=== PATIENT | male | born 1965 | race American Indian/Alaskan Native ===

== ENCOUNTER 2018-12-02 09:10 | Emergency (ER) | payer SELFPAY ==
[2018-12-02 09:24] VITALS: BP 139/86
[2018-12-02 10:18] LABS: Basophils % (Auto) 0.2 % (0.0-1.8); Eosinophils % (Auto) 0.1 % (0.0-4.3); Hematocrit 45.5 % (35.5-45.6); Hemoglobin 16.1 gm/dl (11.8-15.2); Lymphocytes # (Auto) 0.7 K/mm3 (1.2-5.4); Lymphocytes % (Auto) 8.9 % (13.4-35.0); Mean Corpuscular HGB Conc 35 % (32-34); Mean Corpuscular Volume 101 fl (84-94); Monocytes # (Auto) 0.5 K/mm3 (0.0-0.8); Monocytes % (Auto) 5.6 % (0.0-7.3); Platelet Count 264 K/mm3 (140-440); Red Cell Distribution Width 14.1 % (13.2-15.2)
[2018-12-02 10:37] LABS: Alanine Aminotransferase 14 units/L (7-56); BUN/Creatinine Ratio 9; Blood Urea Nitrogen 8 mg/dL (9-20); Calcium 9.8 mg/dL (8.4-10.2); Hemolysis Index 15
--- NOTE | 2018-12-02 11:17 | Ultrasound Report ---
LIMITED RUQ ABDOMINAL ULTRASOUND INDICATION: Epigastric pain. COMPARISON: No relevant prior imaging study available. FINDINGS: Pancreas: Visualized portions show no significant abnormality. Abdominal Aorta: Mild atherosclerosis noted. IVC: No significant abnormality. Liver: No significant abnormality. Normal hepatopedal blood flow in the main portal vein. Gallbladder: No significant abnormality. Bile ducts: No significant abnormality. Common bile duct measures 3.9 mm. Right kidney: No significant abnormality visualized.. Free fluid: None. Additional Findings: None. IMPRESSION: 1. No acute or concerning abnormality in the right quadrant sonographically. Signer Name: Rich Brito MD Signed: 12/02/2018 11:12 AM Workstation Name: [id number]
--- NOTE | 2018-12-02 11:22 | XRay Report ---
CHEST 2 VIEWS 1057 INDICATION / CLINICAL INFORMATION: Long history of smoking, currently severe shortness of breath foll owing walking. COMPARISON: None available. FINDINGS: SUPPORT DEVICES: None. HEART / MEDIASTINUM: No significant abnormality. LUNGS / PLEURA: No significant pulmonary or pleural abnormality. No pneumothorax. ADDITIONAL FINDINGS: No significant additional findings. IMPRESSION: No significant acute abnormality Signer Name: Tiago James MD Signed: 12/02/2018 11:17 AM Workstation Name: [id number]
--- NOTE | 2018-12-02 11:49 | Emergency Department Report ---
ED General Adult HPI - General Chief complaint: Dyspnea/Respdistress Stated complaint: NAUSEA/SOB Time Seen by Provider: 12/02/18 09:55 Source: patient Mode of arrival: Ambulatory Limitations: No Limitations - History of Present Illness Initial comments: Patient is a 53-year-old male withhistory of any past medical problems who states he has been having some discomfort after eating. Patient states that after eating one or 2 bites of food he becomes very full. Patient states of some mild nausea. He denies vomiting diarrhea fevers cough cold or congestion. Patient states that he feels very bloated. Patient has some exertional shortness of breath but denies chest pain. Patient states that his energy has been decreased for the last week as well. - Related Data Previous Rx's Medication Instructions Recorded Last Taken Type metFORMIN [Glucophage] 500 mg PO BID #30 tablet 12/02/18 Unknown Rx Allergies Allergy/AdvReac Type Severity Reaction Status Date / Time No Known Allergies Allergy Unverified 12/02/18 09:24 ED Review of Systems ROS: Stated complaint: NAUSEA/SOB Other details as noted in HPI Comment: All other systems reviewed and negative ED Past Medical Hx - Past Medical History Previous Medical History?: No - Surgical History Past Surgical History?: No - Social History Smoking Status: Current Every Day Smoker Substance Use Type: Alcohol - Medications Home Medications: Home Medications Medication Instructions Recorded Confirmed Last Taken Type metFORMIN [Glucophage] 500 mg PO BID #30 tablet 12/02/18 Unknown Rx ED Physical Exam - General Limitations: No Limitations General appearance: alert, in no apparent distress - Head Head exam: Present: atraumatic, normocephalic - Eye Eye exam: Present: normal appearance - ENT ENT exam: Present: mucous membranes moist - Neck Neck exam: Present: normal inspection - Respiratory Respiratory exam: Present: normal lung sounds bilaterally. Absent: respiratory distress, wheezes, rales, rhonchi - Cardiovascular Cardiovascular Exam: Present: regular rate, normal rhythm. Absent: systolic murmur, diastolic murmur, rubs, gallop - GI/Abdominal GI/Abdominal exam: Present: soft, normal bowel sounds. Absent: distended, tenderness, guarding, rebound - Rectal Rectal exam: Present: deferred - Extremities Exam Extremities exam: Present: normal inspection - Back Exam Back exam: Present: normal inspection - Neurological Exam Neurological exam: Present: alert, oriented X3 - Psychiatric Psychiatric exam: Present: normal affect, normal mood - Skin Skin exam: Present: warm, dry, intact, normal color. Absent: rash ED Course Vital Signs 12/02/18 09:18 Temperature 97.8 F Pulse Rate 89 Respiratory 16 Rate Blood Pressure 139/86 O2 Sat by Pulse 99 Oximetry ED Medical Decision Making - Lab Data Result diagrams: 12/02/18 10:06 12/02/18 10:06 Lab Results 12/02/18 12/02/18 Range/Units 10:06 10:06 WBC 8.2 (4.5-11.0) K/mm3 RBC 4.50 (3.65-5.03) M/mm3 Hgb 16.1 H (11.8-15.2) gm/dl Hct 45.5 (35.5-45.6) % MCV 101 H (84-94) fl MCH 36 H (28-32) pg MCHC 35 H (32-34) % RDW 14.1 (13.2-15.2) % Plt Count 264 (140-440) K/mm3 Lymph % (Auto) 8.9 L (13.4-35.0) % [place] % (Auto) 5.6 (0.0-7.3) % Eos % (Auto) 0.1 (0.0-4.3) % Baso % (Auto) 0.2 (0.0-1.8) % Lymph # 0.7 L (1.2-5.4) K/mm3 [place] # 0.5 (0.0-0.8) K/mm3 Eos # 0.0 (0.0-0.4) K/mm3 Baso # 0.0 (0.0-0.1) K/mm3 Seg Neutrophils % 85.2 H (40.0-70.0) % Seg Neutrophils # 7.0 (1.8-7.7) K/mm3 Sodium 140 (137-145) mmol/L Potassium 4.3 (3.6-5.0) mmol/L Chloride 97.6 L (98-107) mmol/L Carbon Dioxide 23 (22-30) mmol/L Anion Gap 24 mmol/L BUN 8 L (9-20) mg/dL Creatinine 0.9 (0.8-1.5) mg/dL Estimated GFR > 60 ml/min BUN/Creatinine Ratio 9 % Glucose 156 H (75-100) mg/dL Calcium 9.8 (8.4-10.2) mg/dL Total Bilirubin 0.30 (0.1-1.2) mg/dL AST 46 H (5-40) units/L ALT 14 (7-56) units/L Alkaline Phosphatase 84 (35-129) units/L Total Protein 8.2 (6.3-8.2) g/dL Albumin 5.0 (3.9-5) g/dL Albumin/Globulin Ratio 1.6 % Lipase 19 (13-60) units/L - Radiology Data Radiology results: report reviewed (CXR WNL) [facility] [address] [place] [address] Ultrasound Report Signed Patient: BRENDA HASSAN MR#: [id number] : 1965 Acct:[id number] Age/Sex: 53 / M ADM Date: 12/02/18 Loc: ED Attending Dr: Ordering Physician: JESUS MANUEL MITCHELL MD Date of Service: 12/02/18 Procedure(s): US abdomen limited Accession Number(s): [id number] cc: JESUS MANUEL MITCHELL MD LIMITED RUQ ABDOMINAL ULTRASOUND INDICATION: Epigastric pain. COMPARISON: No relevant prior imaging study available. FINDINGS: Pancreas: Visualized portions show no significant abnormality. Abdominal Aorta: Mild atherosclerosis noted. IVC: No significant abnormality. Liver: No significant abnormality. Normal hepatopedal blood flow in the main portal vein. Gallbladder: No significant abnormality. Bile ducts: No significant abnormality. Common bile duct measures 3.9 mm. Right kidney: No significant abnormality visualized.. Free fluid: None. Additional Findings: None. IMPRESSION: 1. No acute or concerning abnormality in the right quadrant sonographically. Signer Name: Rich Brito MD Signed: 12/02/2018 11:12 AM Workstation Name: [id number] Transcribed By: ESTHER Dictated By: Rich Brito MD Electronically Authenticated By: Rich Brito MD Signed Date/Time: 12/02/18 1112 DD/ 1111 TD/TT: - Medical Decision Making Patient's laboratory studies show that the patient does have slight elevation of his blood glucose. Patient is not eaten anything this morning. Patient likely with early diabetes. We will start the patient on metformin at this time and have him follow up with primary care as well as GI. Critical care attestation.: If time is entered above; I have spent that time in minutes in the direct care of this critically ill patient, excluding procedure time. ED Disposition Clinical Impression: Hyperglycemia, Bloating symptom Disposition: DC- TO HOME OR SELFCARE Is pt being admited?: No Does the pt Need Aspirin: No Condition: Stable Instructions: Diabetic Hyperglycemia (ED), Diet for Ulcers and Gastritis (ED) Prescriptions: metFORMIN [Glucophage] 500 mg PO BID #30 tablet Referrals: TOMÁS BLOCK MD [Primary Care Provider] - 3-5 Days [facility] [Provider Group] - 3-5 Days Time of Disposition: 11:52
== END 2018-12-02 12:04 | disposition home or self-care (01) ==
LOC: ED 09:10
DX: R14.0 Abdominal distension (gaseous) (principal); R11.0 Nausea; R73.9 Hyperglycemia, unspecified; R06.02 Shortness of breath; F17.200 Nicotine dependence, unspecified, uncomplicated
CPT/HCPCS: 36415; 71046; 76705; 80053; 83690; 85025

== ENCOUNTER 2018-12-08 08:55 | Emergency (ER) | payer SELFPAY ==
--- NOTE | 2018-12-08 09:36 | Emergency Department Report ---
HPI - General Chief Complaint: Weakness Time Seen by Provider: 12/08/18 09:26 - HPI HPI: 53-year-old -Iranian male presents to the emergency department with feeling generalized weakness and fatigue. The patient was found to have a blood sugar of 57 with a triage today and then was given some orange juice to drink. The patient was here on 12/02/18 for some similar symptoms and was found to have a blood sugar of about 157 at that time, was diagnosed with diabetes or prediabetes, and was started on metformin 500 mg twice daily. The patient says that he has filled this medication and has been taking compliantly. He did take it this morning but did not have anything to eat yet. He otherwise denies any past medical history. He does not have a primary care physician. He denies any fever, chest pain, shortness of breath, headache, vision changes, slurred speech, or any neurological deficits. ED Past Medical Hx - Past Medical History Previous Medical History?: Yes Hx Diabetes: Yes - Surgical History Past Surgical History?: No - Social History Smoking Status: Current Every Day Smoker Substance Use Type: None - Medications Home Medications: Home Medications Medication Instructions Recorded Confirmed Last Taken Type metFORMIN [Glucophage] 500 mg PO BID #30 tablet 12/02/18 Unknown Rx ED Review of Systems ROS: Stated complaint: WEAK/NAUSEA Other details as noted in HPI Comment: All other systems reviewed and negative Constitutional: weakness, other (fatigue). denies: fever Eyes: denies: eye pain, vision change ENT: denies: ear pain, throat pain Respiratory: denies: cough, shortness of breath Cardiovascular: denies: chest pain, palpitations Gastrointestinal: denies: abdominal pain, vomiting Genitourinary: denies: dysuria, discharge Musculoskeletal: denies: back pain, arthralgia Skin: denies: rash, lesions Neurological: denies: headache, weakness Physical Exam - Physical Exam Physical Exam: GENERAL: The patient is well-developed well-nourished. HENT: Normocephalic. Atraumatic. Patient has moist mucous membranes. EYES: Extraocular motions are intact. Pupils equal reactive to light bilaterally. NECK: Supple. Trachea is midline. CHEST/LUNGS: Clear to auscultation. There is no respiratory distress noted. HEART/CARDIOVASCULAR: Regular. There is no tachycardia. There is no murmur. ABDOMEN: Abdomen is soft, nontender. Patient has normal bowel sounds. There is no abdominal distention. SKIN: Skin is warm and dry. NEURO: The patient is awake, alert, and oriented. The patient is cooperative. The patient has no focal neurologic deficits. The patient has normal speech. Cranial nerves II through XII grossly intact. MUSCULOSKELETAL: There is no tenderness or deformity. There is no evidence of acute injury. ED Medical Decision Making - Lab Data Result diagrams: 12/08/18 09:32 12/08/18 09:32 - EKG Data -: EKG Interpreted by Me EKG shows normal: sinus rhythm, axis (left axis deviation), intervals, QRS complexes (Q waves to the septal leads, LVH), ST-T waves Rate: normal - EKG Data When compared to previous EKG there are: previous EKG unavailable Interpretation: other (sinus rhythm, left axis deviation, LVH, Q waves to the septal leads) - Medical Decision Making this patient initially came in with the complaint of feeling fatigued and some generalized weakness and was found to have a blood sugar of 57. He was started on metformin 500 mg twice daily about 1 week ago when he had the same symptoms at that time and was found to have a blood sugar of about 160. Patient's labs today have been unremarkable other than the initial episode of hypoglycemia. He was given some orange juice through triage and then later was given a lunch tray. His serum blood sugar came back at about 75. He never had any further episodes of hypoglycemia but his blood sugar would drop when it was rechecked and this was most likely from the extended effects of the metformin. With this complaint of fatigue and generalized weakness, an EKG was also checked but it did not show any signs of ST elevation GA or significant dysrhythmia. His negative labs also included a normal thyroid function and a negative troponin. Eventually the patient's blood sugar appeared to plateau and/or stabilize. The patient is feeling improved. Vital signs were stable throughout his ED course. Brought these reasons, the patient appears safe for discharge home at this time. He has been instructed to stop taking the metformin. He may have some borderline diabetes but it will be very important for him to follow up with a primary care physician or clinic to have a hemoglobin A1c checked and to establish care so that someone can evaluate his blood sugar and further decisions can be made regarding whether or not he needs some type of treatment. In the meantime, we discussed dietary and lifestyle changes such as decreased intake of sugar, carbohydrates and starches. He has been instructed to try and find a way to keep a blood sugar check. He will return to the emergency Department with any worsening of his symptoms or any acute distress. - Differential Diagnosis diabetic hypoglycemia, insulinoma, dysrhythmia, electrolyte abnormalities Critical Care Time: No Critical care attestation.: If time is entered above; I have spent that time in minutes in the direct care of this critically ill patient, excluding procedure time. ED Disposition Clinical Impression: Hypoglycemia Disposition: DC-01 TO HOME OR SELFCARE Is pt being admited?: No Condition: Stable Instructions: Non-diabetic Hypoglycemia (ED), Diabetic Hypoglycemia (ED) Additional Instructions: Please follow up with a primary care physician or clinic in the next few days. Stop taking the metformin until follow-up with a primary care physician or clinic. Try and stay away from foods that are high in sugar, carbohydrates and starches. Keep a blood sugar log. Return to the emergency department with any return or worsening of her symptoms, or if any acute distress. Referrals: [facility] [place] [Outside] - 2-3 Days [facility] [Outside] - 2-3 Days [facility] [Outside] - 2-3 Days [facility] [Outside] - 2-3 Days Time of Disposition: 14:42
[2018-12-08 09:50] LABS: Basophils # (Auto) 0.1 K/mm3 (0.0-0.1); Basophils % (Auto) 0.6 % (0.0-1.8); Eosinophils # (Auto) 0.1 K/mm3 (0.0-0.4); Eosinophils % (Auto) 0.7 % (0.0-4.3); Hematocrit 50.7 % (35.5-45.6); Hemoglobin 17.7 gm/dl (11.8-15.2); Lymphocytes # (Auto) 1.8 K/mm3 (1.2-5.4); Lymphocytes % (Auto) 17.3 % (13.4-35.0); Mean Corpuscular HGB Conc 35 % (32-34); Mean Corpuscular Volume 102 fl (84-94); Monocytes # (Auto) 0.6 K/mm3 (0.0-0.8); Monocytes % (Auto) 5.4 % (0.0-7.3); Platelet Count 237 K/mm3 (140-440); Red Blood Count 4.98 M/mm3 (3.65-5.03); Red Cell Distribution Width 13.9 % (13.2-15.2)
[2018-12-08 10:21] LABS: Alanine Aminotransferase 16 units/L (7-56); Albumin 5.4 g/dL (3.9-5); BUN/Creatinine Ratio 8; Blood Urea Nitrogen 7 mg/dL (9-20); Calcium 10.2 mg/dL (8.4-10.2); Hemolysis Index 19
[2018-12-08 13:57] VITALS: BP 143/95
== END 2018-12-08 14:48 | disposition home or self-care (01) ==
LOC: ED 08:55
DX: E11.649 Type 2 diabetes mellitus with hypoglycemia without coma (principal); F17.200 Nicotine dependence, unspecified, uncomplicated; Z79.84 Long term (current) use of oral hypoglycemic drugs
CPT/HCPCS: 36415; 80053; 82962; 84443; 84484; 85025; 93005; 93010; 99284

== ENCOUNTER 2021-09-13 08:35 | Outpatient (CLI) | payer OTHER | END 2021-09-13 08:36 | disposition home or self-care (01) | LOC: PF 08:35 | PROVIDERS: ATTEND Internal Medicine | DX: Z02.71 Encounter for disability determination (principal) | CPT/HCPCS: 94060 ==